=== PATIENT | male | born 1995 | race Caucasian/White ===

== ENCOUNTER 2021-06-05 17:00 | Emergency (ER) | payer SELFPAY ==
[2021-06-05 17:03] VITALS: BMI 31.7
[2021-06-05 17:27] VITALS: BMI 29.5
--- NOTE | 2021-06-05 18:09 | ED_ITS ---
HPI - Eye Problem General: Chief complaint: Eye Problems Stated complaint: LEFT EYE INJURY/INFLAMMATION Time Seen by Provider: 06/05/21 17:44 History of Present Illness: HPI Narrative: Patient is a 25-year-old male who comes to the ED with left eye injury. Patient says he was working today and went and rubbed his eye and he thinks board ship or some foreign body got into his left eye. This occurred around 11:00 today while he was at work. He immediately tried rinsing his eye with water multiple times. He worked the rest of the day and his eyes got more red swollen and painful. He has some purulent drainage coming from his left eye as well. He rates his pain about a 5 out of 10. Associated symptoms: Denies fever(s), headache(s), nausea, neck pain or vomiting Review of Systems Const: Denies: fever(s), chills or fatigue Eyes: Reports: eye discomfort (left eye), eye discharge (purulent discharge) and eye redness (left eye); Denies: change in vision ENMT: Denies: throat pain, odynophagia, nasal discharge or nasal congestion Card: Denies: chest pain, palpitations, edema, swelling of feet/ankles, dyspnea on exertion or orthopnea Resp: Denies: dyspnea, productive cough or non-productive cough GI: Denies: abdominal pain, nausea, vomiting, diarrhea, constipation or hematochezia : Denies: flank pain, difficulty urinating, dysuria or hematuria Musc: Denies: neck pain, back pain or extremity swelling Skin/Breast: Denies: rash or new lesions Neuro: Denies: headache(s), numbness in extremities or weakness in extremities Physical Exam Const: COMMON NORMALS: patient oriented x3 and alert GENERAL APPEARANCE: cooperative and comfortable HENMT: COMMON NORMALS: normocephalic HEAD & SCALP: normocephalic MOUTH: Normal oral and palatal mucosa present THROAT: posterior oropharynx normal and uvula midline Eye: COMMON NORMALS: Equal, round and reactive pupils present PERIORBITAL: periorbital findings abnormal positive left periorbital swelling and periorbital erythema EYELID: eyelid abnormality left upper eyelid erythema and swelling; without foreign bodies and left lower eyelid erythema and swelling; with no foreign bodies CONJUNCTIVA: Yes conjunctival abnormal positive left conjunctival injection diffuse PUPIL: Yes Equal, round and reactive pupils present SLIT LAMP EXAM: Yes slit lamp exam performed with fluorescein OTHER: Purulent drainage noted from left eye. I was unable to visualize any foreign body in Left eye. lamp exam with fluorescein dye performed and corneal abrasion noted. Neck/C-Spine: COMMON NORMALS: supple GENERAL: Yes normal visual inspection Resp: COMMON NORMALS: normal respiratory effort, No retractions, No use of accessory muscles and clear to auscultation bilaterally AUSCULTATION: clear to auscultation bilaterally Cardio: COMMON NORMALS: regular rate, regular rhythm, S1 normal heart sound present, S2 normal heart sound present, No gallops present (Cardio), No clicks present (Cardio), No murmurs present (Cardio) and Peripheral pulses 2+ throughout RATE: regular rate RHYTHM: regular rhythm HEART SOUNDS: S1 normal heart sound present and S2 normal heart sound present PERIPHERAL PULSES: Peripheral pulses 2+ throughout GI: COMMON NORMALS: Normal to inspection, nondistended, normoactive bowel sounds present, Soft to palpation, non-tender and no masses PALPATION: Yes Soft to palpation : COMMON NORMALS: Yes no CVA tenderness BLADDER/KIDNEY EXAM: Yes no CVA tenderness Back/Pelvis: COMMON NORMALS: no CVA tenderness Extremity: COMMON NORMALS: normal to inspection Neuro: COMMON NORMALS: patient oriented x3 and moves all extremities SENSORIUM/ORIENTATION: Yes alert Skin: GENERAL SKIN EXAM: dry skin Course ED course: I had patient use the eye irrigation station for approximately 1 minute take rinse out left eye. Vital Signs: Vital signs: Vital Signs Pulse Rate 78 06/05/21 18:40 Respiratory Rate 20 H 06/05/21 18:40 Blood Pressure 114/70 06/05/21 18:40 Pulse Oximetry 96 06/05/21 18:40 MDM - Eye Problem MDM Narrative: Medical decision making narrative: Patient is a 25-year-old male comes to the ED with left eye complaint. At work today he thinks he got a small wood chip in his left eye that caused his symptoms. He tried rinsing his eye out multiple times today. While here in the ED I had patient use the eye irrigation station for approximately 1 minute to rinse out his left eye. Patient's left eye has diffuse conjunctivitis with upper and lower lid swelling and erythema. Some purulent drainage noted. No visible foreign body seen upon exam and fluorescein dye and lamp exam showed corneal abrasion. Patient was given a dose of Maxitrol optic ointment here in the ED and discharged home with a prescription for Maxitrol eye ointment. He was told to contact Dr. Escobar [facility] tomorrow morning to set up an appointment for him to be evaluated within the next 48 hours. I told her if he cannot get into Dr. Escobar he can return to the ED to be reevaluated. Patient understood and agreed with plan. Discharge Plan Discharge Patient Disposition: Home Clinical Impression: Corneal abrasion Qualifiers: Encounter type: initial encounter Laterality: left Qualified Code(s): S05.02XA - Injury of conjunctiva and corneal abrasion without foreign body, left eye, initial encounter Foreign body in eye Qualifiers: Encounter type: initial encounter Laterality: left Qualified Code(s): T15.92XA - Foreign body on external eye, part unspecified, left eye, initial encounter Condition: Stable Prescriptions: New Maxitrol 3.5 mg/g-10,000 unit/g-0.1 % ointment 1 applic ophthalmic (eye) Q6H 5 Days Qty: 3.5 RF: 0 Discharge Orders: Discharge ED (Routine); Ordered 06/05/21 Ordered By: Bonifacio Alva Discharge Diet: Regular Discharge Activity: Resume usual activity Patient Instructions: Corneal Abrasion (ED), Eye Foreign Body (ED) Activity Restrictions/Additional Instructions: Follow-up with medical provider as directed. You need to be seen by Dr. Escobar Tomorrow morning to be evaluated. Call Dr. Escobar eye clinic tomorrow morning when it opens-- phone number is [phone]. Address is [facility] [address] Bennett Burns. take medications as prescribed. Return to the ER or your medical provider if condition worsens. Please read and understand discharge instructions. If any questions, please ask. Stand Alone Forms: Work/School Release Coding Level of Care Code ED Pinking Machine Operator for Chelsy Fwd Exam Comprehensive
[2021-06-05] MEDS: HYDROcodone-acetaminophen 5-325 mg Tablet 1 TAB PO (18:14)
[2021-06-05] MEDS: tetracaine 0.5% Op Soln 4 mL Btl 1 DROP EYE-LEFT (18:15)
[2021-06-05] MEDS: fluorescein 1 mg Strip EYE-LEFT (18:15)
[2021-06-05] MEDS: eye irrigation 30 mL Btl EYE-LEFT (18:15)
[2021-06-05 18:40] VITALS: BP 114/70; PULSE 78; RESP 20; O2SAT 96
[2021-06-05] MEDS: neomycin-poly-dex Op oint 3.5 gm 1 APPLIC EYE-LEFT (19:04)
== END 2021-06-05 19:12 | disposition home or self-care (01) ==
PROVIDERS: Emergency Provider Physician Assistant
DX: S05.02XA Injury of conjunctiva and corneal abrasion without foreign body, left eye, initial encounter (principal); X58.XXXA Exposure to other specified factors, initial encounter
CPT/HCPCS: 99283

== ENCOUNTER 2023-06-10 15:53 | Emergency (ER) | payer SELFPAY ==
[2023-06-10 16:03] VITALS: BP 124/68; PULSE 111; RESP 14; TEMP 37.4; O2SAT 99; BMI 24.6
--- NOTE | 2023-06-10 16:33 | W.ED.ALLEREA ---
HPI - Allergic Reaction General: Chief complaint: Allergic Reaction Stated complaint: allergic reaction, full body, 2 days Time Seen by Provider: 06/10/23 16:22 Course Vital Signs: Vital signs: Vital Signs Temperature 99.4 F 06/10/23 16:03 Pulse Rate 111 H 06/10/23 16:03 Respiratory Rate 14 06/10/23 16:03 Blood Pressure 124/68 06/10/23 16:03 Pulse Oximetry 99 06/10/23 16:03 Oxygen Delivery Me thod Room Air 06/10/23 16:03 Discharge Plan Discharge Condition: Stable Coding Level of Care Code ED Real Estate Consultant for Chelsy Carmona
--- NOTE | 2023-06-10 16:49 | W.ED.SKABFB ---
Documented by User: ZA Man 06/11/23 07:01 HPI - Skin/Abscess/Foreign Bdy General: Chief complaint: Allergic Reaction Stated complaint: allergic reaction, full body, 2 days Time Seen by Provider: 06/10/23 16:22 Source: patient Mode of arrival: ambulatory Limitations: no limitations History of Present Illness: Patient is a 27-year-old male who presents to ED today with complaints of a generalized rash that he began noticing approximately 2 days ago. Patient gives a history that he walked into a swarm of mosquitoes and seems to think that his rash is related to mosquito bites. Patient has been treating with [id number] Benadryl without any improvement. He states rash is not overly pruritic. He complains of diffuse joint pains as well as subjective fevers. No recent illness. No prolonged attached tick bites MD complaint: rash Onset (ago): day(s) Tetanus up to date: yes Location: generalized Severity: moderate Relieving factors: none Exacerbating factors: none Associated symptoms: Reports arthralgias, chills and fever(s); Deny nausea or vomiting Treatments prior to arrival: Benadryl Review of Systems Const: Reports: fever(s), chills and other (joint pains); Denies: fatigue or malaise Card: Denies: chest pain Resp: Denies: dyspnea GI: Denies: abdominal pain, nausea, vomiting or diarrhea Musc: Denies: neck pain or back pain Skin/Breast: Reports: rash Neuro: Denies: headache(s), numbness in extremities, weakness in extremities or sensory changes Physical Exam Const: COMMON NORMALS: no acute distress, patient oriented x3, no limitations, alert and well nourished GENERAL APPEARANCE: cooperative ORIENTATION/CONSCIOUSNESS: Yes awake, Yes oriented to person, Yes oriented to place and Yes oriented to time Resp: COMMON NORMALS: normal respiratory effort and clear to auscultation bilaterally AUSCULTATION: clear to auscultation bilaterally Cardio: COMMON NORMALS: regular rhythm RATE: tachycardic RHYTHM: regular rhythm Neuro: COMMON NORMALS: patient oriented x3 SENSORIUM/ORIENTATION: Yes alert, Yes oriented to person, Yes oriented to place and Yes oriented to time Skin: NARRATIVE SKIN EXAM: Patient has a generalized erythematous rash consisting of dime to nickel sized wheals only sparing soles and palms. He seems to have some larger confluence and areas to his bilateral lower anterior shins that appear to be purpura-like. Course ED course: Due to extensive rash, purpura like lesions to lower extremities, and systemic symptoms I think it is reasonable to obtain labs including coags/inflammatory markers. Care transferred to REAL Gonzales pending these labs ES Vital Signs: Vital signs: Vital Signs Temperature 99.4 F 06/10/23 16:03 Pulse Rate 111 H 06/10/23 16:03 Respiratory Rate 14 06/10/23 16:03 Blood Pressure 124/68 06/10/23 16:03 Pulse Oximetry 99 06/10/23 16:03 Oxygen Delivery Me thod Room Air 06/10/23 16:03 MDM - Skin/Abscess/Foreign Bdy Lab Data 06/10/23 16:57 06/10/23 16:57 Laboratory Results WBC 5.3 10^3/uL (4.0-10.0) 06/10/23 16:57 RBC 4.19 10^6/uL (4.1-5.3) 06/10/23 16:57 Hgb 12.1 g/dL (11.7-16.6) 06/10/23 16:57 Hct 37.1 % (42.0-52.0) L 06/10/23 16:57 MCV 88.5 fl (80-94) 06/10/23 16:57 MCH 28.9 pg (28.0-34.0) 06/10/23 16:57 MCHC 32.6 g/dL (30.0-36.0) 06/10/23 16:57 RDW 13.4 % (12.1-15.1) 06/10/23 16:57 Plt Count 146 10^3/cmm (130-400) 06/10/23 16:57 MPV 10.6 fL (7.4-10.4) H 06/10/23 16:57 Neut % (Auto) 76.2 % 06/10/23 16:57 Lymph % (Auto) 12.9 % 06/10/23 16:57 [place] % (Auto) 10.3 % 06/10/23 16:57 Eos % (Auto) 0.0 % 06/10/23 16:57 Baso % (Auto) 0.4 % 06/10/23 16:57 Neut # (Auto) 4.06 10^3/uL (1.8-7.7) 06/10/23 16:57 Lymph # (Auto) 0.7 10^3/uL (0.8-4.8) L 06/10/23 16:57 [place] # (Auto) 0.6 10^3/uL (0.2-0.9) 06/10/23 16:57 Eos # (Auto) 0.0 10^3/uL (0.0-0.8) 06/10/23 16:57 Baso # (Auto) 0.0 10^3/uL (0.0-0.1) 06/10/23 16:57 Nucleated RBC % (auto) 0 % 06/10/23 16:57 Nucleated RBCs # 0.0 /100WBC 06/10/23 16:57 ESR 14 mm/hr (0-10) H 06/10/23 16:57 PT 13.50 SECONDS (12.1-14.9) 06/10/23 16:57 INR 1.00 (0.8-1.2) 06/10/23 16:57 APTT 31.6 SECONDS (23.9-36.7) 06/10/23 16:57 Sodium 135 mmol/L (136-145) L 06/10/23 16:57 Potassium 3.3 mmol/L (3.5-5.1) L 06/10/23 16:57 Chloride 99 mmol/L (98-107) 06/10/23 16:57 Carbon Dioxide 26 mmol/L (22-29) 06/10/23 16:57 Anion Gap 13.3 (5-19) 06/10/23 16:57 BUN 11 mg/dL (6-20) 06/10/23 16:57 Creatinine 0.8 mg/dL (0.7-1.2) 06/10/23 16:57 GFR Calculation 114.3 mL/min (90-130) 06/10/23 16:57 Glucose 72 mg/dL (65-115) 06/10/23 16:57 Calculated Osmolality 278 mOsm/kg (285-295) L 06/10/23 16:57 Calcium 8.5 mg/dL (8.5-10.5) 06/10/23 16:57 Total Bilirubin 0.2 mg/dL (0.15-1.2) 06/10/23 16:57 AST 25 U/L (0-40) 06/10/23 16:57 ALT 24 U/L (0-41) 06/10/23 16:57 Alkaline Phosphatase 70 U/L (40-130) 06/10/23 16:57 C-Reactive Protein 113.2 mg/L (0.0-4.9) H 06/10/23 16:57 Total Protein 6.5 g/dL (6.6-8.7) L 06/10/23 16:57 Albumin 3.6 g/dL (3.5-5.2) 06/10/23 16:57 Globulin 2.9 g/dL (1.3-4.6) 06/10/23 16:57 Discharge Plan Discharge Patient Disposition: Home Clinical Impression: Allergic reaction Qualifiers: Encounter type: initial encounter Qualified Code(s): T78.40XA - Allergy, unspecified, initial encounter Condition: Stable Prescriptions: New prednisone 20 mg tablet 20 mg PO BID 7 Days Qty: 14 0RF hydroxyzine HCl 25 mg tablet 25 mg PO Q6H PRN (Reason: itching or rash) Qty: 40 0RF Discharge Orders: Discharge ED (Routine); Ordered 06/10/23 Ordered By: Teddy Ryan Discharge Diet: Usual diet Discharge Activity: Increase activity as tolerated Patient Instructions: Allergic Reaction Activity Restrictions/Additional Instructions: Take steroids and use hydroxyzine as directed. The steroids will help decrease the reaction to the insect bites. The hydroxyzine use as needed for rash and itching. Drink plenty of water with medications. Follow-up with primary care for further instructions. Return to ED for worsening symptoms such as fever greater than 100.4, blood in vomit or stool, chest pain or increased shortness of breath. Sign Out Sign Out Data: Patient Sign Out occurred on 06/10/23 at 17:12. Patient's care was discussed, and care was transferred from to Teddy Ryan. Coding Level of Care Code ED Filter Press Tender for Chg Fwd Documented by User: REAL Roper 06/10/23 18:10 HPI - Skin/Abscess/Foreign Bdy General: Chief complaint: Allergic Reaction Stated complaint: allergic reaction, full body, 2 days Time Seen by Provider: 06/10/23 16:22 Course Vital Signs: Vital signs: Vital Signs Temperature 99.4 F 06/10/23 16:03 Pulse Rate 111 H 06/10/23 16:03 Respiratory Rate 14 06/10/23 16:03 Blood Pressure 124/68 06/10/23 16:03 Pulse Oximetry 99 06/10/23 16:03 Oxygen Delivery Me thod Room Air 06/10/23 16:03 MDM - Skin/Abscess/Foreign Bdy Medicial Decision Making 27-year-old male patient comes in today for complaints of rash. I assumed care of this patient at the end of Lyndsay Caceres PA-C, shift. On my exam patient had a generalized urticaric rash. Patient did have some purpura to his legs. Patient reports that 2 to 3 days ago he was climbing under his trailer to fix a water line when he opened up the trailer he was swarmed by a bunch of mosquitoes and sustained multiple bites. Patient reports over the last 2 days he has developed more of the rash and itching. Patient reported some chills and joint pain along with the rash. Differential diagnosis includes HSP, allergic reaction, tick fever, viral syndrome. CBC showed no significant abnormalities with a normal white blood cell count and platelets. No significant anemia was noted with a hemoglobin of 12.1. CMP did have a mild decrease in sodium at 135, potassium 3.3, normal liver enzymes. Patient sed rate was 14 and CRP was 113. Suspect patient's had allergic reaction to insect bites. No thrombocytopenia was noted. Normal liver enzymes. Patient will be started on steroids and antihistamines. Patient was encouraged to drink plenty of fluids and monitor for fever, shortness of breath, blood in vomit or stool, or new concerns. Patient was stable and reported understanding to plan and need for follow-up or return to the ER. Lab Data 06/10/23 16:57 06/10/23 16:57 Laboratory Results WBC 5.3 10^3/uL (4.0-10.0) 06/10/23 16:57 RBC 4.19 10^6/uL (4.1-5.3) 06/10/23 16:57 Hgb 12.1 g/dL (11.7-16.6) 06/10/23 16:57 Hct 37.1 % (42.0-52.0) L 06/10/23 16:57 MCV 88.5 fl (80-94) 06/10/23 16:57 MCH 28.9 pg (28.0-34.0) 06/10/23 16:57 MCHC 32.6 g/dL (30.0-36.0) 06/10/23 16:57 RDW 13.4 % (12.1-15.1) 06/10/23 16:57 Plt Count 146 10^3/cmm (130-400) 06/10/23 16:57 MPV 10.6 fL (7.4-10.4) H 06/10/23 16:57 Neut % (Auto) 76.2 % 06/10/23 16:57 Lymph % (Auto) 12.9 % 06/10/23 16:57 [place] % (Auto) 10.3 % 06/10/23 16:57 Eos % (Auto) 0.0 % 06/10/23 16:57 Baso % (Auto) 0.4 % 06/10/23 16:57 Neut # (Auto) 4.06 10^3/uL (1.8-7.7) 06/10/23 16:57 Lymph # (Auto) 0.7 10^3/uL (0.8-4.8) L 06/10/23 16:57 [place] # (Auto) 0.6 10^3/uL (0.2-0.9) 06/10/23 16:57 Eos # (Auto) 0.0 10^3/uL (0.0-0.8) 06/10/23 16:57 Baso # (Auto) 0.0 10^3/uL (0.0-0.1) 06/10/23 16:57 Nucleated RBC % (auto) 0 % 06/10/23 16:57 Nucleated RBCs # 0.0 /100WBC 06/10/23 16:57 ESR 14 mm/hr (0-10) H 06/10/23 16:57 PT 13.50 SECONDS (12.1-14.9) 06/10/23 16:57 INR 1.00 (0.8-1.2) 06/10/23 16:57 APTT 31.6 SECONDS (23.9-36.7) 06/10/23 16:57 Sodium 135 mmol/L (136-145) L 06/10/23 16:57 Potassium 3.3 mmol/L (3.5-5.1) L 06/10/23 16:57 Chloride 99 mmol/L (98-107) 06/10/23 16:57 Carbon Dioxide 26 mmol/L (22-29) 06/10/23 16:57 Anion Gap 13.3 (5-19) 06/10/23 16:57 BUN 11 mg/dL (6-20) 06/10/23 16:57 Creatinine 0.8 mg/dL (0.7-1.2) 06/10/23 16:57 GFR Calculation 114.3 mL/min (90-130) 06/10/23 16:57 Glucose 72 mg/dL (65-115) 06/10/23 16:57 Calculated Osmolality 278 mOsm/kg (285-295) L 06/10/23 16:57 Calcium 8.5 mg/dL (8.5-10.5) 06/10/23 16:57 Total Bilirubin 0.2 mg/dL (0.15-1.2) 06/10/23 16:57 AST 25 U/L (0-40) 06/10/23 16:57 ALT 24 U/L (0-41) 06/10/23 16:57 Alkaline Phosphatase 70 U/L (40-130) 06/10/23 16:57 C-Reactive Protein 113.2 mg/L (0.0-4.9) H 06/10/23 16:57 Total Protein 6.5 g/dL (6.6-8.7) L 06/10/23 16:57 Albumin 3.6 g/dL (3.5-5.2) 06/10/23 16:57 Globulin 2.9 g/dL (1.3-4.6) 06/10/23 16:57 Discharge Plan Discharge Patient Disposition: Home Clinical Impression: Allergic reaction Qualifiers: Encounter type: initial encounter Qualified Code(s): T78.40XA - Allergy, unspecified, initial encounter Condition: Stable Prescriptions: New prednisone 20 mg tablet 20 mg PO BID 7 Days Qty: 14 0RF hydroxyzine HCl 25 mg tablet 25 mg PO Q6H PRN (Reason: itching or rash) Qty: 40 0RF Discharge Orders: Discharge ED (Routine); Ordered 06/10/23 Ordered By: Teddy Ryan Discharge Diet: Usual diet Discharge Activity: Increase activity as tolerated Patient Instructions: Allergic Reaction Activity Restrictions/Additional Instructions: Take steroids and use hydroxyzine as directed. The steroids will help decrease the reaction to the insect bites. The hydroxyzine use as needed for rash and itching. Drink plenty of water with medications. Follow-up with primary care for further instructions. Return to ED for worsening symptoms such as fever greater than 100.4, blood in vomit or stool, chest pain or increased shortness of breath. Sign Out Sign Out Data: Patient Sign Out occurred on 06/10/23 at 17:12. Patient's care was discussed, and care was transferred from to Teddy Ryan. Coding Level of Care Code ED Filter Press Tender for Chelsy Carmona
[2023-06-10 17:10] LABS: Basophils % 0.4 %; Hematocrit 37.1 % (42.0-52.0); Hemoglobin 12.1 g/dL (11.7-16.6); Lymphocytes # 0.7 10^3/uL (0.8-4.8); Lymphocytes % 12.9 %; Mean Corpuscular HGB Conc 32.6 g/dL (30.0-36.0); Mean Corpuscular Hemoglobin 28.9 pg (28.0-34.0); Mean Corpuscular Volume 88.5 fl (80-94); Mean Platelet Volume 10.6 fL (7.4-10.4); Monocytes # 0.6 10^3/uL (0.2-0.9); Monocytes % 10.3 %; Neutrophils # 4.06 10^3/uL (1.8-7.7); Neutrophils % 76.2 %; Nucleated Red Blood Cells % 0 %; Platelet Count 146 10^3/cmm (130-400); Red Blood Count 4.19 10^6/uL (4.1-5.3); Red Cell Distribution Width 13.4 % (12.1-15.1); White Blood Count 5.3 10^3/uL (4.0-10.0)
[2023-06-10 17:24] LABS: Partial Thromboplastin Time 31.6 SECONDS (23.9-36.7)
[2023-06-10 17:25] LABS: Erythrocyte Sedimentation Rate 14 mm/hr (0-10)
[2023-06-10 17:44] LABS: Alanine Aminotransferase 24 U/L (0-41); Albumin Level 3.6 g/dL (3.5-5.2); Alkaline Phosphatase 70 U/L (40-130); Anion Gap 13.3 (5-19); Aspartate Amino Transferase 25 U/L (0-40); Blood Urea Nitrogen 11 mg/dL (6-20); C Reactive Protein 113.2 mg/L (0.0-4.9); Calcium 8.5 mg/dL (8.5-10.5); Carbon Dioxide 26 mmol/L (22-29); Chloride 99 mmol/L (98-107); Globulin 2.9 g/dL (1.3-4.6); Glomerular Filtration Rate 114.3 mL/min (90-130); Glucose 72 mg/dL (65-115); Osmolality Calculated 278 mOsm/kg (285-295); Potassium 3.3 mmol/L (3.5-5.1); Sodium 135 mmol/L (136-145); Total Bilirubin 0.2 mg/dL (0.15-1.2); Total Protein 6.5 g/dL (6.6-8.7)
[2023-06-10] MEDS: diphenhydrAMINE 50 mg/mL SDV 1mL IM (18:28)
[2023-06-10] MEDS: dexamethasone 10 mg/mL INJ IM (18:29)
== END 2023-06-10 18:33 | disposition home or self-care (01) ==
PROVIDERS: Physician Assistant; Emergency Provider Nurse Practitioner Family
DX: T78.40XA Allergy, unspecified, initial encounter (principal)
CPT/HCPCS: 80053; 85025; 85610; 85651; 85730; 86140; 96372; 99284; J1100; J1200

== ENCOUNTER 2024-03-02 10:02 | Emergency (ER) | payer OTHER, SELFPAY ==
[2024-03-02 10:05] VITALS: BP 121/74; PULSE 69; RESP 16; TEMP 36.4; O2SAT 100
--- NOTE | 2024-03-02 10:09 | ED_ITS ---
HPI - Wound/Laceration General: Chief Complaint: Wound/Laceration Stated Complaint: left hand, midle finger lac Time Seen by Provider: 03/02/24 10:05 Source: patient Mode of arrival: ambulatory Limitations: no limitations History of Present Illness: Patient is a 28-year-old male who presents to ED today for evaluation of a distal fingertip amputation to his left middle finger that he sustained just p rior to arrival after using a table saw. He states this is a Worker's Comp injury. He states his last tetanus was just a few months ago. Onset (ago): hour(s) Extremity Location: Left: hand (middle finger) Place: work Patient tetanus UTD: Yes Context: accidental Associated symptoms: Reports no associated symptoms Treatments prior to arrival: bandage Review of Systems Musc: Reports: extremity pain (L middle finger) Skin/Breast: Reports: other (amputation distal tip L middle finger) Physical Exam Const: COMMON NORMALS: average body habitus, no limitations, alert and well nourished Extremity: GENERAL: Yes normal exam except as noted LEFT UPPER EXTREMITY: Yes hand & digits Left hand and digits: Yes neurovascular exam (normal) and Yes other (see below) OTHER: patient has an open partial distal tip amputation to L middle finger; there is tissue and nail loss present and not enough tissue present to repair/flap; bleeding controlled Neuro: COMMON NORMALS: moves all extremities, no focal motor deficits and no sensory deficits noted SENSORIUM/ORIENTATION: Yes alert Course Consultations: Consultation #1: Dr. Rojas-ortho hotel casino floorperson-recommending we speak to Dr. Alva or refer to hand surgeon in [place] Consultation #2: Dr. Alva-recommends patient see Bonifacio Alva PA-C in clinic today and plan for OR tomorrow; recommend irrigation, vaseline gauze, bulky dressing Vital Signs: Vital signs: Vital Signs Temperature 97.5 F L 03/02/24 10:05 Pulse Rate 69 03/02/24 10:05 Respiratory Rate 16 03/02/24 10:05 Blood Pressure 121/74 03/02/24 10:05 Pulse Oximetry 100 03/02/24 10:05 MDM - Wound/Laceration Medical Decision Making Patient is a 28-year-old male here with an open partial distal tip amputation to left middle finger. There is tissue and nail loss present and not enough tissue present to repair/flap at this time. Patient's tetanus is up-to-date. He was given IM Ancef here. Wound was copiously irrigated. Wound will be dressed and he will see our orthopedic team later today and plan for surgical intervention tomorrow. Lab Data Radiology Impressions Finger X-Ray 03/02/24 10:21 IMPRESSION: There is an open fracture demonstrated with soft tissue and oblique distal tuft avulsion type amputation of the 3rd digit distal phalanx. All radiology interpretation(s) finalized by discharge Discharge Plan Discharge Patient Disposition: Home Clinical Impression: Open fracture of tuft of distal phalanx of finger Partial traumatic amputation of finger through phalanx Qualifiers: Encounter type: initial encounter Qualified Code(s): S68.629A - Partial traumatic transphalangeal amputation of unspecified finger, initial encounter Condition: Stable Prescriptions: New hydrocodone-acetaminophen 5-325 mg tablet 1 tab PO Q6H PRN (Reason: pain) Qty: 14 0RF cephalexin 500 mg capsule 500 mg PO Q6H 7 Days Qty: 28 0RF Discharge Orders: Discharge ED (Routine); Ordered 03/02/24 Ordered By: Lyndsay Caceres Patient Instructions: Opioid Safety, Pain Management Activity Restrictions/Additional Instructions: As we discussed you will see the [facility] orthopedic clinic today for evaluation and plan will be for repair of your distal fingertip amputation tomorrow. I have went ahead and prescribed you antibiotics and pain medications-these have been sent to your pharmacy on file. You have been given IM Ancef (antibiotic) prior to discharge here. You have indicated that your tetanus is up-to-date. Coding Level of Care Code ED Telegraph Equipment Maintainer for Chelsy Carmona
--- NOTE | 2024-03-02 10:21 | XRR_ITS ---
PROCEDURE INFORMATION: Exam: XR Left Finger(s) Exam date and time: 03/02/2024 10:25 AM Age: 28 years old Clinical indication: Injury or trauma; Other: Table saw; Amputation, traumatic; Left middle finger; Additional info: Trauma/amputation/middle finger TECHNIQUE: Imaging protocol: Radiologic exam of the left fingers. 3image(s) are provided. Views: Minimum 2 views. COMPARISON: No relevant prior left finger studies are currently available. FINDINGS: Bones/joints: Carpal alignment appears maintained. No dislocation is appreciated. There is history of injury to the distal 3rd digit corresponding with an amputation type avulsion fracture and subtle fragmentation of the adjacent distal phalanx tuft. This is indicative of an open fracture. No other displaced fracture is currently appreciated. Soft tissues: No radiopaque foreign body or diffuse subcutaneous emphysema is appreciated. There is however a skin defect of the distal 3rd digit demonstrated corresponding to the clinical history provided. There appear to be some chronic soft tissue type calcifications and marginal spurring. XR/XR finger LT min 2V [id number] IMPRESSION: There is an open fracture demonstrated with soft tissue and oblique distal tuft avulsion type amputation of the 3rd digit distal phalanx.
[2024-03-02] MEDS: ceFAZolin 1,000 MG in water for injection-sterile 2.5 ML 2.5 MG IM (12:01)
[2024-03-02] MEDS: HYDROcodone-acetaminophen 5-325 mg Tablet 1 TAB PO (12:35)
[2024-03-02 12:40] VITALS: BP 121/74; PULSE 69; RESP 16; TEMP 36.4; O2SAT 100
== END 2024-03-02 12:44 | disposition home or self-care (01) ==
PROVIDERS: Emergency Provider Physician Assistant
DX: S68.623A Partial traumatic transphalangeal amputation of left middle finger, initial encounter (principal); W27.0XXA Contact with workbench tool, initial encounter
CPT/HCPCS: 73140; 96372; 99284; J0690